=== PATIENT | female | born 1935 | race Caucasian/White ===

== ENCOUNTER 2017-03-10 10:49 | Outpatient (CLI) | payer MEDICARE, OTHER | END 2017-03-10 10:50 | disposition home or self-care (01) | DX: R29.6 Repeated falls (principal); R74.8 Abnormal levels of other serum enzymes; E55.9 Vitamin D deficiency, unspecified; R94.5 Abnormal results of liver function studies ==

== ENCOUNTER 2017-03-15 08:46 | Outpatient (CLI) | payer MEDICARE, OTHER ==
[2017-03-15] MEDS ORDERED: GADOBUTROL 7.5 MMOL/7.5 ML VIAL IVP ONE (09:42)
== END 2017-03-15 08:47 | disposition home or self-care (01) ==
DX: R29.898 Other symptoms and signs involving the musculoskeletal system (principal); R29.6 Repeated falls
CPT/HCPCS: 70553; A9585

== ENCOUNTER 2017-03-24 10:03 | Outpatient (CLI) | payer MEDICARE, OTHER | END 2017-03-24 10:04 | DX: R94.5 Abnormal results of liver function studies (principal); E78.00 Pure hypercholesterolemia, unspecified; R26.89 Other abnormalities of gait and mobility; I63.50 Cerebral infarction due to unspecified occlusion or stenosis of unspecified cerebral artery ==

== ENCOUNTER 2017-04-15 11:18 | Outpatient (CLI) | payer MEDICARE, OTHER | END 2017-04-15 11:19 | disposition home or self-care (01) | DX: R94.5 Abnormal results of liver function studies (principal) ==